=== PATIENT | female | born 1960 | race Caucasian/White ===

== ENCOUNTER → 2018-12-25 | Outpatient (CLI) | payer BC | LOC: BMCIMAGING 13:17 | PROVIDERS: ATTEND Internal Medicine | DX: Z12.31 Encounter for screening mammogram for malignant neoplasm of breast (principal) ==

== ENCOUNTER → 2019-01-01 | Outpatient (CLI) | payer BC | LOC: BMCIMAGING 10:47 | PROVIDERS: ATTEND Internal Medicine | DX: R92.8 Other abnormal and inconclusive findings on diagnostic imaging of breast (principal); R59.9 Enlarged lymph nodes, unspecified ==

== ENCOUNTER → 2019-01-11 | Day surgery (SDC) | payer BC ==
[~2019-01-11] MED LIST: BUPIVACAINE 0.5% 30 ML SDV ONE; LIDOCAINE 1% 300 MG/30 ML SDV ONE
== END | disposition home or self-care (01) ==
LOC: FIMAGING 07:15
PROVIDERS: ATTEND Internal Medicine
PROC: 0HBT3ZX Excision of Right Breast, Percutaneous Approach, Diagnostic (ICD-10-PCS; principal; 2019-01-11)
DX: N60.11 Diffuse cystic mastopathy of right breast (principal)

== ENCOUNTER → 2019-01-18 | Outpatient (CLI) | payer BC | LOC: BMCIMAGING 13:39 | PROVIDERS: ATTEND Internal Medicine Rheumatology | DX: M79.641 Pain in right hand (principal); M79.642 Pain in left hand ==